=== PATIENT | female | born 1955 | race Caucasian/White ===

== ENCOUNTER 2024-01-02 23:23 | Emergency (ER) | payer MEDICAID, SELFPAY ==
[2024-01-02 23:29] VITALS: BP 105/62; PULSE 100; RESP 16; TEMP 36.6; O2SAT 96; BMI 26.6
[2024-01-03 01:00] VITALS: BP 120/70; PULSE 89; RESP 16; O2SAT 100
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
[2024-01-03 01:30] VITALS: BP 150/103; PULSE 109; RESP 16; O2SAT 98
[2024-01-03 03:14] VITALS: BP 145/69; PULSE 101; RESP 16; O2SAT 97
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
== END 2024-01-03 03:52 | disposition home or self-care (01) ==
PROVIDERS: Emergency Provider Emergency Medicine
DX: S20.219A Contusion of unspecified front wall of thorax, initial encounter (principal); V89.2XXA Person injured in unspecified motor-vehicle accident, traffic, initial encounter
CPT/HCPCS: 70450; 70486; 71260; 72125; 74177; 99284; Q9967

== ENCOUNTER → 2024-01-14 15:57 | Outpatient (BNVA) | payer MEDICAID, SELFPAY | PROVIDERS: Visit Provider Family Medicine Adult Medicine | DX: R91.8 Other nonspecific abnormal finding of lung field (principal); E04.2 Nontoxic multinodular goiter | CPT/HCPCS: 80053; 84439; 84443; 85025 ==

== ENCOUNTER 2024-01-26 07:45 | Outpatient (CLI) | payer MEDICAID, SELFPAY ==
--- NOTE | 2024-01-26 | PETR_ITS ---
PROCEDURE INFORMATION: Exam: PET/CT Skull Base to Mid-thigh Exam date and time: 01/26/2024 8:54 AM Age: 68 years old Clinical indication: Abnormal findings; Multiple pulmonary nodules/masses. Findings suspicious for malignancy. ; Additional info: Abnormal lung findings LABS AND CLINICAL REPORTS: Glucose: 126 mg/dl Treatment strategy for malignancy (PET staging): Initial Staging (PI) TECHNIQUE: Imaging protocol: Following at least four-hour fasting and following the injection of radiopharmaceutical, low dose CT images were obtained. Then, PET images were obtained. Attenuation corrected images were constructed using the CT scan. Fused images of PET and CT were reviewed. The standardized uptake values (SUV) reported below are maximum values within a region of interest, expressed in gm/ml. Exam includes orbital meatal line to mid-thigh. Radiopharmaceutical: 11.39 mCi F-18 FDG (Fluorodeoxyglucose), IV. Time of imaging post radiopharmaceutical administration: 55 minutes Injection site: Left antecubital COMPARISON: 1. CT facial bones wo con* [id number] 01/03/2024 1:[address] chest abdpel w/*[id number] 01/03/2024 1:56 AM FINDINGS: Brain: Visualized brain has normal physiologic uptake. Teeth: FDG avid (SUV max 7.5) left maxillary molar periapical lucency with adjacent maxillary sinus mucosal thickening versus mucous retention cyst. Pharynx: No abnormal uptake. Larynx: No abnormal uptake. Thyroid: Multinodular thyroid gland with index 2 cm nodule showing FDG uptake with SUV max of 5.2. Lower level FDG uptake at the right thyroid gland. Lungs, pleura and trachea: Spiculated right middle lobe nodule measuring 2.5 x 1.8 cm on axial image 243 of series 202 shows tiny calcification and FDG uptake with SUV max of 7.8. 1.5 x 1.1 cm subpleural left lower lobe nodule on axial image 236 of series 2 shows SUV max of 5.4. Linear atelectasis versus scarring adjacent to both nodules. Mild dependent atelectasis. Left lower lobe calcified granuloma. Heart: Normal physiologic uptake. Mediastinal space: No abnormal uptake. Diaphragm: Small hiatal hernia. Liver: No abnormal uptake. Gallbladder and biliary ducts: No abnormal uptake. Prior cholecystectomy. Pancreas: No abnormal uptake. Spleen: No abnormal uptake. Adrenal glands: No abnormal uptake. Kidneys and ureters: Normal physiologic uptake. Couple small right renal calcifications without hydronephrosis. Stomach and bowel: No abnormal uptake. Vasculature: No abnormal uptake. Heavy systemic atherosclerotic calcification without aortic aneurysm. Lymph nodes: Subcentimeter left level 2B cervical lymph node measures 5 mm in the short axis on axial image 316 of series 202 and shows SUV max of 5.6. Subcentimeter precarinal lymph node (6 mm short axis) shows SUV max of 4.0 on axial image 262 of series 202. Subcentimeter right hilar lymph node (6 mm short axis) shows SUV max of 3.5 on axial image 255 of series 202. Calcified left hilar lymph nodes in keeping with sequela of old granulomatous disease. Skeleton: Focal FDG uptake at subacute healing anterolateral and lateral left 2nd rib fractures as well as anterolateral left 3rd rib fracture. Degenerative change along the spine and sacroiliac joints. Low-level FDG uptake adjacent to the greater trochanters likely represents gluteal tendinopathy. Soft tissues: No abnormal uptake in the visualized head, neck, chest, abdomen, pelvis, and extremities. PET/PET skull to thigh INIT [id number] IMPRESSION: 1. Spiculated FDG avid 2.5 cm right middle lobe nodule and FDG avid 1.5 cm left lower lobe nodule suspicious for malignancy. 2. Subcentimeter ngup-yx-axbkczrndi FDG avid precarinal and right hilar lymph nodes concerning for metastatic disease given above findings but are nonspecific and could also be reactive. 3. Subcentimeter FDG avid left level 2B cervical lymph node is also nonspecific, could be metastatic or reactive. 4. Multinodular thyroid gland with moderately FDG avid 2 cm left thyroid nodule. Recommend nonemergent thyroid ultrasound. 5. Subacute healing left 2nd and 3rd rib fractures. 6. Suggested left maxillary odontogenic sinusitis.
== END 2024-01-26 07:46 | disposition home or self-care (01) ==
LOC: RAD 07:45
PROVIDERS: Visit Provider Family Medicine Adult Medicine
DX: E04.2 Nontoxic multinodular goiter (principal)
CPT/HCPCS: 78815; A9552

== ENCOUNTER 2024-02-08 14:48 | Outpatient (CLI) | payer MEDICAID, SELFPAY ==
--- NOTE | 2024-02-08 15:15 | US_ITS ---
WS: [id number] ULTRASOUND THYROID TECHNIQUE: Ultrasound of the thyroid. CLINICAL INFORMATION: thyroid nodules COMPARISON: None. FINDINGS: Thyroid: Right and left thyroid lobes are normal in size and echotexture. 2 nodules on the RIGHT and 1 on the LEFT. Right thyroid lobe: 5.3 cm x 2.6 cm x 2.0 cm Lobulated solid RIGHT thyroid nodule measuring 2.3 x 2.1 cm. Associated vascularity. Additional smaller solid RIGHT inferior thyroid nodule measuring 1.5 x 1.2 cm Left thyroid lobe: 4.1 cm x 2.4 cm x 2.1 cm. Well-circumscribed homogeneous solid LEFT thyroid nodule measuring 2.2 x 1.6 cm. This is FDG avid on the prior PET/CT. Isthmus: 0.3 mm. Cervical lymphadenopathy: None. US/US thyroid [id number] IMPRESSION: FDG-avid LEFT thyroid nodule measuring 2.2 x 1.6 cm. Recommend further evaluati on with FNA. TIRADS Category 4: Moderately suspicious (total points = 4) FNA if e1.5 cm Solid lobulated RIGHT thyroid nodule measuring 2.3 x 2.1 cm. Recommend further evaluation with FNA. TIRADS Category 4: Moderately suspicious (total points = 4) FNA if e1.5 cm Small RIGHT inferior thyroid nodule measuring 1.5 x 1.2 cm. Recommend 12-month follow-up. TIRADS Category 4: Moderately suspicious (total points = 4) FNA if e1.5 cm Follow if e1 cm (at 1, 2, 3, and 5 years)
== END 2024-02-08 14:49 | disposition home or self-care (01) ==
LOC: RAD 14:49
PROVIDERS: Visit Provider Family Medicine Adult Medicine
DX: E04.2 Nontoxic multinodular goiter (principal)
CPT/HCPCS: 76536

== ENCOUNTER 2024-02-09 08:49 | Oncology outpatient (recurring) (ONCR) | payer MEDICAID, SELFPAY | END 2024-02-25 09:19 | disposition home or self-care (01) | PROVIDERS: Visit Provider Internal Medicine Medical Oncology | DX: R91.8 Other nonspecific abnormal finding of lung field (principal); Z53.9 Procedure and treatment not carried out, unspecified reason | CPT/HCPCS: 99205 ==

== ENCOUNTER 2024-07-05 16:56 | Emergency (ER) | payer MEDICAID, SELFPAY ==
[2024-07-05 17:05] VITALS: BP 95/60; PULSE 83; RESP 17; TEMP 36.9; O2SAT 99; BMI 26.6
[2024-07-05 18:16] LABS: Basophils % 0.4 %; Eosinophils # 0.2 10^3/uL (0.0-0.8); Eosinophils % 1.9 %; Hematocrit 44.7 % (36-47); Lymphocytes # 2.5 10^3/uL (0.8-4.8); Lymphocytes % 30.3 %; Mean Corpuscular HGB Conc 31.8 g/dL (30-55); Mean Corpuscular Volume 94.3 fl (85-98); Monocytes # 0.8 10^3/uL (0.2-0.9); Monocytes % 9.1 %; Neutrophils # 4.86 10^3/uL (1.8-7.7); Neutrophils % 58.1 %; Nucleated Red Blood Cells % 0 %; Platelet Count 198 10^3/cmm (157-399); Red Blood Count 4.74 10^6/uL (3.85-5.65); Red Cell Distribution Width 13.3 % (12.1-15.1); White Blood Count 8.37 10^3/uL (3.29-11.43)
[2024-07-05 18:29] LABS: Bilirubin Urine Negative (Negative); Blood Urine 2+ (Negative); Glucose Urine UA Negative (Normal); Ketones Urine Negative (Negative); Leukocyte Esterase Urine Negative (Negative); Nitrate Urine Negative (Negative); Protein Urine Negative (Negative); Specific Gravity, Urine 1.022 (1.005-1.030); Urine Appearance Clear (CLEAR); Urine Color Yellow (Yellow); pH Urine 6.5 (5-7)
[2024-07-05 18:33] LABS: INR 0.89 (0.8-1.2)
[2024-07-05 18:34] LABS: Add Urine Microscopic? YES; Bacteria Urine None Seen /hpf; RBC Urine 21-50 /hpf (0-2); Squamous Epithelial Cell Urine 0-5 /hpf (0-5); WBC Urine 0-5 /hpf (0-5)
[2024-07-05 18:37] LABS: Alanine Aminotransferase 8 U/L (0-33); Alkaline Phosphatase 91 U/L (35-105); Anion Gap 9.5 (5-19); Aspartate Amino Transferase 12 U/L (0-32); Blood Urea Nitrogen 19 mg/dL (8-23); Calcium 9.4 mg/dL (8.5-10.5); Carbon Dioxide 31 mmol/L (22-29); Chloride 105 mmol/L (98-107); Creatinine Clr Calc Pharmacy 74.4723; Globulin 2.8 g/dL (1.3-4.6); Glomerular Filtration Rate 71.3 mL/min (90-130); Glucose 98 mg/dL (65-115); Osmolality Calculated 294 mOsm/kg (285-295); Potassium 4.5 mmol/L (3.5-5.1); Sodium 141 mmol/L (136-145); Total Bilirubin 0.2 mg/dL (0.15-1.2); Total Protein 6.8 g/dL (6.6-8.7)
[2024-07-05 18:38] VITALS: BP 116/61; PULSE 82; O2SAT 97
--- NOTE | 2024-07-05 18:39 | CTR_ITS ---
PROCEDURE INFORMATION: Exam: CT Abdomen And Pelvis With Contrast Exam date and time: 07/05/2024 7:10 PM Age: 69 years old Clinical indication: Abdominal pain; Generalized; Prior surgery; Surgery date: 6+ months; Surgery type: Lithotripsy; Additional info: Right flank pain history of stones TECHNIQUE: Imaging protocol: Computed tomography of the abdomen and pelvis with contrast. Radiation optimization: All CT scans at this facility use at least one of these dose optimization techniques: automated exposure control; mA and/or kV adjustment per patient size (includes targeted exams where dose is matched to clinical indication); or iterative reconstruction. Contrast material: OMNIPAQUE 350; Contrast volume: 100 ml; Contrast route: INTRAVENOUS (IV); COMPARISON: 1. PT PET skull to thigh INIT [id number] 01/26/2024 8:[address] chest abdpel w/*[id number] 01/03/2024 1:56 AM RADIATION DOSE METRICS: Total DLP (mGy-cm): 636.63 FINDINGS: Lungs: Stable sub 6 mm nodules in the lung bases. Liver: The liver is enlarged, measuring 20 cm craniocaudal. No suspicious mass. Gallbladder and biliary ducts: Status post cholecystectomy. Pancreas: Normal. No ductal dilation. Spleen: Normal. No splenomegaly. Adrenal glands: Normal. No mass. Kidneys and ureters: Similar benign-appearing renal cysts. Stable right renal calcifications, including likely nonobstructing calculi and cortical calcifications, measuring up to 4 mm. No left nephrolithiasis. No hydronephrosis bilaterally. Areas of cortical scarring in the left kidney again seen. Stomach and bowel: The stomach is moderately distended with debris. Appendix: No evidence of appendicitis. Intraperitoneal space: Unremarkable. No free air. No significant fluid collection. Vasculature: Diffuse aortoiliac calcifications. No aortic aneurysm. Lymph nodes: Unremarkable. No enlarged lymph nodes. Urinary bladder: Unremarkable as visualized. Reproductive: Unremarkable as visualized. Bones/joints: Unremarkable. No acute fracture. Soft tissues: Unremarkable. CT/CT abdomen pelvis w con* [id number] IMPRESSION: 1. Stable nonobstructing right nephrolithiasis. No evidence of obstructive uropathy. 2. Ancillary findings as above are similar to prior. COMMENTS: Consistent with the [employer]'s Incidental Findings Committee white paper (J Am Kathryn Radiol 2018): Any incidental renal lesion less than 1 cm or classified as too small to characterize, or any incidental cystic renal lesion characterized as simple-appearing, is likely benign. No follow-up imaging is recommended for these lesions per consensus recommendations based on imaging criteria.
[2024-07-05 18:45] LABS: Add Urine Culture? Yes
--- NOTE | 2024-07-05 19:04 | W.ED.ABDPA2 ---
HPI - Abdominal Pain General: Chief Complaint: Abdominal Pain Stated Complaint: blood in urine Time Seen by Provider: 07/05/24 17:52 History of Present Illness: Patient presents to the ER from urgent care with complaints of blood in her urine. She is also having some right-sided flank pain. Has been having this since midnight last night. She does have a history of kidney stones. She denies any nausea vomiting fever chills. Related Data Home Medications Medication Instructions Recorded Confirmed acetaminophen 325 mg capsule 325 mg PO QID PRN 02/09/24 02/09/24 aspirin 325 mg tablet 325 mg PO Q6H 02/09/24 02/09/24 Allergies Allergy/AdvReac Type Severity Reaction Status Date / Time No Known Drug Allergies Allergy Unknown Verified 07/05/24 17:08 Review of Systems General: Reports: 10 or more systems reviewed and unremarkable except in HPI and below PFSH ED PFSH: Medical History Hyperlipidemia Nicotine dependence History of seizures Healthcare maintenance Last Pap 2012, last mammogram 2011, PFT 2016 High cholesterol Renal calculus, right Multiple thyroid nodules Multiple lung nodules on CT GERD (gastroesophageal reflux disease) Surgical History History of lung biopsy (2011) Right lung biopsy, complicated by pneumothorax Status post ORIF of fracture of ankle (2018) Right ankle Family History Father Diabetes Hypertension Heart attack Mother Diabetes Heart disease Sister Colon cancer Brother Lung cancer Sister Lung cancer Social History Smoking and tobacco/nicotine status: current every day tobacco/nicotine user cigarettes Packs smoked per day: 1 Years cigarettes smoked: 49 Alcohol intake: current Alcohol intake frequency: holidays/special occasions only Alcohol type: beer, wine and hard liquor Substance/Drug Use: current Substance/Drug use frequency: daily Physical Exam Const: COMMON NORMALS: no acute distress, average body habitus, patient oriented x3, no limitations, healthy appearing, alert and well nourished HENMT: COMMON NORMALS: normocephalic, atraumatic, hearing grossly normal bilaterally, external ears normal, Normal external nose present and moist oral mucous membranes HEAD & SCALP: normocephalic and atraumatic NOSE: Normal external nose present EXTERNAL EAR: Yes external ears normal Neck/C-Spine: COMMON NORMALS: no JVD Chest: COMMONS NORMALS: normal inspection of the chest and normal palpation of entire chest wall Resp: COMMON NORMALS: normal respiratory effort, No retractions, No use of accessory muscles and clear to auscultation bilaterally AUSCULTATION: clear to auscultation bilaterally Cardio: COMMON NORMALS: no JVD, regular rate, regular rhythm, S1 normal heart sound present, S2 normal heart sound present, No gallops present (Cardio), No clicks present (Cardio), No murmurs present (Cardio) and No rub (Cardio) RATE: regular rate RHYTHM: regular rhythm HEART SOUNDS: S1 normal heart sound present and S2 normal heart sound present GI: COMMON NORMALS: Normal to inspection, nondistended, normoactive bowel sounds present, Soft to palpation, non-tender, No hepatosplenomegaly present and no masses PALPATION: Yes Soft to palpation and Yes No hepatosplenomegaly present Neuro: COMMON NORMALS: patient oriented x3 SENSORIUM/ORIENTATION: Yes alert Course Vital Signs: Vital signs: Vital Signs Temperature 98.4 F 07/05/24 17:05 Pulse Rate 80 07/05/24 20:15 Respiratory Rate 16 07/05/24 20:15 Blood Pressure 130/77 07/05/24 20:15 Pulse Oximetry 93 07/05/24 20:15 Oxygen Delivery Me thod Room Air 07/05/24 18:38 MDM - Abdominal Pain Medical Decision Making CT scan showed patient has a stable nonobstructing right 4 mm kidney stone. These results was discussed with the patient. Patient be discharged home. Medical Records I reviewed the patient's medical records. Lab Data I reviewed the patient's lab results. 07/05/24 18:03 07/05/24 18:03 Labs/Radiology: Radiology Impressions Abdomen/Pelvis CT 07/05/24 18:39 IMPRESSION: 1. Stable nonobstructing right nephrolithiasis. No evidence of obstructive uropathy. 2. Ancillary findings as above are similar to prior. COMMENTS: Consistent with the [employer]'s Incidental Findings Committee white paper (J Am Kathryn Radiol 2018): Any incidental renal lesion less than 1 cm or classified as too small to characterize, or any incidental cystic renal lesion characterized as simple-appearing, is likely benign. No follow-up imaging is recommended for these lesions per consensus recommendations based on imaging criteria. Laboratory Results WBC 8.37 10^3/uL (3.29-11.43) 07/05/24 18:03 RBC 4.74 10^6/uL (3.85-5.65) 07/05/24 18:03 Hgb 14.20 g/dL (11.27-16.99) 07/05/24 18:03 Hct 44.7 % (36-47) 07/05/24 18:03 MCV 94.3 fl (85-98) 07/05/24 18: MCH 30.0 pg (27-33) 07/05/24 18: MCHC 31.8 g/dL (30-55) 07/05/24 18:03 RDW 13.3 % (12.1-15.1) 07/05/24 18:03 Plt Count 198 10^3/cmm (157-399) 07/05/24 18:03 MPV 11.0 fL (7.4-10.4) H 07/05/24 18:03 Neut % (Auto) 58.1 % 07/05/24 18:03 Lymph % (Auto) 30.3 % 07/05/24 18:03 [place] % (Auto) 9.1 % 07/05/24 18:03 Eos % (Auto) 1.9 % 07/05/24 18:03 Baso % (Auto) 0.4 % 07/05/24 18: Neut # (Auto) 4.86 10^3/uL (1.8-7.7) 07/05/24 18:03 Lymph # (Auto) 2.5 10^3/uL (0.8-4.8) 07/05/24 18:03 [place] # (Auto) 0.8 10^3/uL (0.2-0.9) 07/05/24 18:03 Eos # (Auto) 0.2 10^3/uL (0.0-0.8) 07/05/24 18:03 Baso # (Auto) 0.0 10^3/uL (0.0-0.1) 07/05/24 18:03 Nucleated RBC % (auto) 0 % 07/05/24 18:03 Nucleated RBCs # 0.0 /100WBC 07/05/24 18:03 PT 12.60 SECONDS (12.1-14.9) 07/05/24 18:03 INR 0.89 (0.8-1.2) 07/05/24 18:03 Sodium 141 mmol/L (136-145) 07/05/24 18:03 Potassium 4.5 mmol/L (3.5-5.1) 07/05/24 18:03 Chloride 105 mmol/L (98-107) 07/05/24 18:03 Carbon Dioxide 31 mmol/L (22-29) H 07/05/24 18:03 Anion Gap 9.5 (5-19) 07/05/24 18: BUN 19 mg/dL (8-23) 07/05/24 18:03 Creatinine 0.8 mg/dL (0.5-0.9) 07/05/24 18:03 GFR Calculation 71.3 mL/min (90-130) L 07/05/24 18:03 Glucose 98 mg/dL (65-115) 07/05/24 18:03 Calculated Osmolality 294 mOsm/kg (285-295) 07/05/24 18:03 Calcium 9.4 mg/dL (8.5-10.5) 07/05/24 18:03 Total Bilirubin 0.2 mg/dL (0.15-1.2) 07/05/24 18:03 AST 12 U/L (0-32) 07/05/24 18:03 ALT 8 U/L (0-33) 07/05/24 18: Alkaline Phosphatase 91 U/L (35-105) 07/05/24 18:03 Total Protein 6.8 g/dL (6.6-8.7) 07/05/24 18: Albumin 4.0 g/dL (3.5-5.2) 07/05/24 18: Globulin 2.8 g/dL (1.3-4.6) 07/05/24 18:03 Urine Color Yellow (Yellow) 07/05/24 18:19 Urine Appearance Clear (CLEAR) 07/05/24 18:19 Urine pH 6.5 (5-7) 07/05/24 18:19 Ur Specific [place] 1.022 (1.005-1.030) 07/05/24 18:19 Urine Protein Negative (Negative) 07/05/24 18:19 Urine Glucose (UA) Negative (Normal) 07/05/24 18:19 Urine Ketones Negative (Negative) 07/05/24 18:19 Urine Blood 2+ (Negative) A 07/05/24 18:19 Urine Nitrate Negative (Negative) 07/05/24 18:19 Urine Bilirubin Negative (Negative) 07/05/24 18:19 Urine Urobilinogen 1.0 mg/dL (Negative) 07/05/24 18:19 Ur Leukocyte Esterase Negative (Negative) 07/05/24 18:19 Urine RBC 21-50 /hpf (0-2) H 07/05/24 18:19 Urine WBC 0-5 /hpf (0-5) 07/05/24 18:19 Ur Squamous Epith Cells 0-5 /hpf (0-5) 07/05/24 18:19 Amorphous Sediment Not Reportable 07/05/24 18:19 Urine Bacteria None seen /hpf (NONE) 07/05/24 18:19 Hyaline Casts 0.40 /lpf 07/05/24 18:19 All radiology interpretation(s) finalized by discharge Discharge Plan Discharge Patient Disposition: Home Clinical Impression: Calculus of kidney Condition: Stable Prescriptions: No Action aspirin 325 mg tablet 325 mg PO Q6H acetaminophen 325 mg capsule 325 mg PO QID PRN Discharge Orders: Discharge ED (Routine); Ordered 07/05/24 Ordered By: Antony Araujo Referrals: Cortes Cano MD [Primary Care Provider] - 1 week Patient Instructions: Kidney Stones Activity Restrictions/Additional Instructions: Thank you for choosing [facility] for your healthcare needs today. Please realize that you were seen in the emergency department and that we are providing you with an emergency medical screening exam and this may not be a complete and all exclusive of all testing and/or medical workup we may need to determine your element or severity of your illness. It is very important that you follow-up as instructed with your primary care provider or specialist for the additional evaluation and to discuss your medical treatment plan. You may return to the emergency department should you have concerns or if your condition changes or worsens in any way. Coding Level of Care Code ED Corporate Development Associate for Kyree Le
[2024-07-05] MEDS: iohexol 350 mg/mL 500 mL Btl (per mL) IV (19:13)
[2024-07-05 20:15] VITALS: BP 130/77; PULSE 80; RESP 16; O2SAT 93
[2024-07-05 20:50] VITALS: BP 133/76; PULSE 84; RESP 16; O2SAT 100
== END 2024-07-05 21:00 | disposition home or self-care (01) ==
PROVIDERS: Emergency Medicine; Emergency Provider Emergency Medicine; PCP Family Medicine Adult Medicine
DX: N20.0 Calculus of kidney (principal); Z79.82 Long term (current) use of aspirin; F17.210 Nicotine dependence, cigarettes, uncomplicated; E78.5 Hyperlipidemia, unspecified
CPT/HCPCS: 36415; 74177; 80053; 81001; 85025; 85610; 87086; 99285

== ENCOUNTER 2025-01-26 11:29 | Emergency (ER) | payer MEDICAID, SELFPAY ==
--- OUTSIDE RECORDS SUMMARY | 2024-05-10 08:40 | XMS_ITS ---
Author Organization [facility] Address [address] [place] [address] Care Team Providers Care Bilingual Call Center Representative Name Role Phone Jerome MURRIETA, Cortes Primary Care Provider Unavailab Josue Newman Unavailable [phone] Easton Strickland Unavailable Unavailable Encounters Encounter Location Date Provider Diagnosis Formerly [facility] [address] [place] [address], [place] [id number] 05/10/2024 Josue Gay Plan Of Treatment No Information Progress Notes * DAVONTE SAMSN EDOB:1955 (69 yo F)Acc No.[id number]:05/10/2024 Progress Notes Patient: NICOLE RIGGINS Provider: Mariana Gay MD :1955 A ge:69 Y S ex:Female Date:05/10/2024 Address:[address] [place], [place] [id number] Pcp:Cortes Cano MD Care Plan Details* * Electronic signature of Ellie Gay MD on 01/26/2025 at 11:37 AM CDT Sign off status: Pending * Provider: Mariana Gay MD Date: 07/10/2023 Generated for Logani ng/Fahoang/eTransmitting on: 0 01/26/2025 11:37 AM CDT
[2025-01-26 11:32] VITALS: BP 98/65; PULSE 71; RESP 16; TEMP 36.8; O2SAT 97; BMI 27.7
--- OUTSIDE RECORDS SUMMARY | 2025-01-26 11:37 | XMS_ITS | Patient Health Record ---
Author Organization [facility] Address [address] [place] [address] Care Team Providers Care School Age Lead Teacher Name Role Phone Cortes Cano MD Primary Care Provider Unavailab Josue Newman Unavailable [phone] Easton Strickland Unavailable Unavailable Allergies No Known Allergies Reason For Referral Reason multiple lung nodule - 03/14: 1 wk per Deidra Scheduled 03/22/24 @ 2:30 PM Diagnosis 1 Other nonspecific ab normal finding of lung field (R91.8) Referring Provider First Name Easton Referring Provider Last Name Marco A Referring Provider Speciality Medical On cology Referred Organization [facility] Referred Provider Josue Gay Referred Address [address] [facility] [address],[place], [place],[address],[place] Referred Provider Specialty Pulmonary Di pennyes General Notes Cassy Bedolla 024 02:21:41 PM >02/23: need to request imaging from PET 01/26/[address] 01/03/24 ; need records from lung biopsy in 2011, Cassy Bedolla 02/25/2024 04:38:04 PM >Shaheen from [facility] radiology stated he would powershare images over., Cassy Bedolla 02/25/2024 04:42:05 PM >Left Message with [facility] oncology asking for lung biopsy records from 2011Graeme Marie 03/01/2024 09:30:13 AM >Called radiology. They received [employer] imaging and will be putting in exceptions. Faxed request to Oncology as we still have not received biopsy records.Graeme Marie 2024 10:24:02 AM >[facility] made it very clear they do not have records of lung biopsy and have no way to request.Graeme Marie 2024 10:28:46 AM >03/14: Gave PET to provider to review, GraemeEmilye 2024 10:33:49 AM >03/14: 1 wk per Graeme Gay Cassy 2024 03:36:21 PM >Scheduled 03/22/24 @ 2:30 PM Referral Priority Stat Social History Tobacco Use: Social History Observation Description Date Details (start date - stop date) Current Smoker NA - NA Social History Tobacco Use: Social Info Question Answer Notes Tobacco Control (Standard) Tobacco use: Current smoker How many cigarettes a day do you smoke? - Problems Problem Type SNOMED Code ICD Code Onset Dates Problem Status W/U Status Risk Notes Problem Tobacco user ([id number]) Nicotine dependence, cigarettes, uncomplicated (F17.210) Active confirmed Vital Signs Heart Rate 70 /min 03/22/2024 Temperature 97 degrees Fahrenheit 03/22/2024 Respiratory Rate 20 /min 03/22/2024 Height-cm 167.64 cm 03/22/2024 Oximetry 99 % 03/22/2024 Blood pressure diastolic 89 mm Hg 03/22/2024 Weight-kg 36.33 kg 03/22/2024 Height 66 in 03/22/2024 Blood pressure systolic 156 mm Hg 03/22/2024 Weight 80.1 lbs 03/22/2024 BMI 12.93 kg/m2 03/22/2024 Encounters Encounter Location Date Provider Diagnosis [facility] [address] [place] [address] [place] [address] 03/22/2024 Josuepeggy Gordonmatthias Multiple pulmonary nodules R91.8 ; Nicotine dependence, cigarettes, uncomplicated F17.210 and Encounter for smoking cessation counseling Z71.6 Assessments Encounter Date Diagnosis (ICD Code) Assessment Notes Treatment Notes Treatment Clinical Notes Section Notes 03/22/2024 Multiple pulmonary nodules (ICD-10 - R91.8) I have discussed with patient treatment options of robotic navigational bronchoscopy vs CT monitoring. In the presence of her [id number] she initially opted to proceed with robotic navigational bronchoscopy. However later on she decided that she was not going to do anything about it. She was tired of all this workup and did not want any further follow-up. 03/22/2024 Nicotine dependence, cigarettes, uncomplicated (ICD-10 - F17.210) -Patient smoked a rqxi-vur-eik for 47 years. She has cut down to half a [id number]-qet since December 2023. Smoking cessation emphasized. 03/22/2024 Encounter for smoking cessation counseling (ICD-10 - Z71.6) 03/22/2024 Other I, Khadijah Tomlin, am scribing for, and in the presence of Dr. Josue Gay. I, Dr. Josue Gay, personally performed the services described in this documentation, as scribed by Khadijah Tomlin in my presence, and it is both accurate and complete. Plan Of Treatment No Information Insurance Providers Payer Name Payer Address Payer Phone Subscriber Number Group Number Insured Name Patient Relationship to Insured Coverage Start Date Coverage End Date [place] Medicaid [address] [place] [address] [id number] NICOLE SAMS Self - patient is the insured Medical (General) History Medical History History ICD Code pneumonia Surgical History Surgery Date(Month/Year) Right lung Biopsy- Rissa2018 ?
--- NOTE | 2025-01-26 11:43 | XR_ITS ---
WS: [id number] XR foot RT min 3V* [id number] REASON FOR EXAM: Trauma FINDINGS: No acute fracture identified. Joint spaces in the forefoot, midfoot, and hindfoot are intact and relatively well preserved. No radiopaque soft tissue foreign body. XR/XR foot RT min 3V* [id number] IMPRESSION: No acute bone or joint abnormality.
--- NOTE | 2025-01-26 11:43 | XR_ITS ---
WS: [id number] XR knee RT 3V* [id number] REASON FOR EXAM: Trauma FINDINGS: Lateral tibial plateau deformity consistent with old healed tibial plateau fracture. No acute fracture is identified. Patella intact. Moderately severe osteoarthritis with multiple loose bodies. XR/XR knee RT 3V* [id number] IMPRESSION: No acute abnormality.
--- NOTE | 2025-01-26 12:04 | W.ED.EXTPRO ---
HPI - Extremity Problem General: Chief complaint: Extremity Problem,Nontraumatic Stated complaint: ochoa burns paiute sent, R foot pain, swelling in R knee Time Seen by Provider: 01/26/25 11:43 History of Present Illness: 69-year-old female presents emergency room complaining of right foot and knee pain for the last few days that she stepped on a nail 6 days ago and now has some swelling on the right foot between the 4th and 5th metatarsal heads where she stepped on the nail no drainage mild redness. No fever. Associated symptoms: Deny chest pain, fever(s) or rash Related Data Home Medications ?Medication ?Instructions ?Recorded ?Confirmed amoxicillin 875 mg-potassium 1 tab PO BID 01/26/25 01/26/25 clavulanate 125 mg tablet ibuprofen 200 mg tablet (Advil) 600 mg PO Q6H PRN Fever Or Pain 01/26/25 01/26/25 sulfamethoxazole 800 1 tab PO BID 01/26/25 01/26/25 mg-trimethoprim 160 mg tablet Previous Rx's ?Medication ?Instructions ?Recorded amoxicillin 875 mg-potassium 1 tab PO BID #14 tabs 01/26/25 clavulanate 125 mg tablet Allergies Allergy/AdvReac Type Severity Reaction Status Date / Time No Known Drug Allergies Allergy Unknown Verified 01/26/25 11:35 Review of Systems Const: Denies: fever(s) or chills Card: Denies: chest pain Resp: Denies: dyspnea GI: Denies: abdominal pain : Denies: dysuria, urinary frequency or urinary urgency Musc: Denies: neck pain or back pain Skin/Breast: Denies: rash PFSH ED PFSH: Medical History Hyperlipidemia Nicotine dependence History of seizures Healthcare maintenance Last Pap 2012, last mammogram 2011, PFT 2017 High cholesterol Renal calculus, right Multiple thyroid nodules Multiple lung nodules on CT GERD (gastroesophageal reflux disease) Surgical History History of lung biopsy (2011) Right lung biopsy, complicated by pneumothorax Status post ORIF of fracture of ankle (2018) Right ankle Family History Father Diabetes Hypertension Heart attack Mother Diabetes Heart disease Sister Colon cancer Brother Lung cancer Sister Lung cancer Social History Smoking and tobacco/nicotine status: current every day tobacco/nicotine user cigarettes Packs smoked per day: 1 Years cigarettes smoked: 49 Alcohol intake: current Alcohol intake frequency: holidays/special occasions only Alcohol type: beer, wine and hard liquor Substance/Drug Use: current Substance/Drug use frequency: daily Physical Exam Const: COMMON NORMALS: no acute distress GENERAL APPEARANCE: cooperative and comfortable ORIENTATION/CONSCIOUSNESS: Yes awake, Yes oriented to person, Yes oriented to place and Yes oriented to time HENMT: COMMON NORMALS: normocephalic, atraumatic and hearing grossly normal bilaterally HEAD & SCALP: normocephalic and atraumatic Resp: COMMON NORMALS: normal respiratory effort, No retractions, No use of accessory muscles and clear to auscultation bilaterally AUSCULTATION: clear to auscultation bilaterally Cardio: COMMON NORMALS: regular rate, regular rhythm and No murmurs present (Cardio) RATE: regular rate RHYTHM: regular rhythm GI: COMMON NORMALS: Soft to palpation and No hepatosplenomegaly present AUSCULTATION: Yes normoactive bowel sounds PALPATION: Yes Soft to palpation, No Tenderness to palpation present (GI), No Guarding due to palpation present (GI) and Yes No hepatosplenomegaly present Extremity: COMMON NORMALS: normal to inspection, capillary refill normal, no clubbing, cyanosis or edema, no calf tenderness and no pedal edema OTHER: Puncture wound mild localized swelling around the forefoot first second digits no purulent drainage. No popliteal lymphadenopathy. Neuro: SENSORIUM/ORIENTATION: Yes oriented to person, Yes oriented to place and Yes oriented to time Skin: COMMON NORMALS: no rashes or lesions noted GENERAL SKIN EXAM: no rashes or lesions noted Course Vital Signs: Vital signs: Vital Signs Temperature 98.2 F 01/26/25 11:32 Pulse Rate 69 01/26/25 12:44 Respiratory Rate 16 01/26/25 11:32 Blood Pressure 121/69 01/26/25 12:44 Pulse Oximetry 99 01/26/25 12:44 Oxygen Delivery Me thod Room Air 01/26/25 12:24 MDM - Extremity (Nontraumatic) Medical Decision Making Mild swelling present tender to touch no purulent drainage. X-rays unremarkable. White count not elevated. CRP very minimally elevated will start on oral antibiotics follow-up as an outpatient Medical Records I reviewed the patient's medical records. Lab Data I reviewed the patient's lab results. 01/26/25 12:00 01/26/25 12:00 Radiology Impressions Foot X-Ray 01/26/25 11:43 IMPRESSION: No acute bone or joint abnormality. Knee X-Ray 01/26/25 11:43 IMPRESSION: No acute abnormality. Laboratory Results WBC 7.15 10^3/uL (3.29-11.43) 01/26/25 12:00 RBC 4.53 10^6/uL (3.85-5.65) 01/26/25 12:00 Hgb 13.90 g/dL (11.27-16.99) 01/26/25 12:00 Hct 43.0 % (36-47) 01/26/25 12:00 MCV 94.9 fl (85-98) 01/26/25 12:00 MCH 30.7 pg (27-33) 01/26/25 12:00 MCHC 32.3 g/dL (30-55) 01/26/25 12:00 RDW 13.1 % (12.1-15.1) 01/26/25 12:00 Plt Count 210 10^3/cmm (157-399) 01/26/25 12:00 MPV 10.7 fL (7.4-10.4) H 01/26/25 12:00 Neut % (Auto) 55.6 % 01/26/25 12:00 Lymph % (Auto) 33.7 % 01/26/25 12:00 [place] % (Auto) 8.5 % 01/26/25 12:00 Eos % (Auto) 1.7 % 01/26/25 12:00 Baso % (Auto) 0.4 % 01/26/25 12:00 Neut # (Auto) 3.97 10^3/uL (1.8-7.7) 01/26/25 12:00 Lymph # (Auto) 2.4 10^3/uL (0.8-4.8) 01/26/25 12:00 [place] # (Auto) 0.6 10^3/uL (0.2-0.9) 01/26/25 12:00 Eos # (Auto) 0.1 10^3/uL (0.0-0.8) 01/26/25 12:00 Baso # (Auto) 0.0 10^3/uL (0.0-0.1) 01/26/25 12:00 Nucleated RBC % (auto) 0 % 01/26/25 12:00 Nucleated RBCs # 0.0 /100WBC 01/26/25 12:00 Sodium 139 mmol/L (136-145) 01/26/25 12:00 Potassium 4.5 mmol/L (3.5-5.1) 01/26/25 12:00 Chloride 104 mmol/L (98-107) 01/26/25 12:00 Carbon Dioxide 27 mmol/L (22-29) 01/26/25 12:00 Anion Gap 12.5 (5-19) 01/26/25 12:00 BUN 14 mg/dL (8-23) 01/26/25 12:00 Creatinine 0.9 mg/dL (0.5-0.9) 01/26/25 12:00 GFR Calculation 62.3 mL/min (90-130) L 01/26/25 12:00 Glucose 109 mg/dL (65-115) 01/26/25 12:00 Calculated Osmolality 289 mOsm/kg (285-295) 01/26/25 12:00 Calcium 9.0 mg/dL (8.5-10.5) 01/26/25 12:00 Total Bilirubin 0.2 mg/dL (0.15-1.2) 01/26/25 12:00 AST 13 U/L (0-32) 01/26/25 12:00 ALT 9 U/L (0-33) 01/26/25 12:00 Alkaline Phosphatase 94 U/L (35-105) 01/26/25 12:00 C-Reactive Protein 5.6 mg/L (0.0-4.9) H 01/26/25 12:00 Total Protein 7.1 g/dL (6.6-8.7) 01/26/25 12:00 Albumin 3.9 g/dL (3.5-5.2) 01/26/25 12:00 Globulin 3.2 g/dL (1.3-4.6) 01/26/25 12:00 All radiology interpretation(s) finalized by discharge Discharge Plan Discharge Patient Disposition: Home Clinical Impression: Cellulitis Condition: Stable Prescriptions: New amoxicillin-pot clavulanate 875-125 mg tablet 1 tab PO BID Qty: 14 0RF No Action sulfamethoxazole-trimethoprim 800-160 mg tablet 1 tab PO BID ibuprofen [Advil] 200 mg Tablet 600 mg PO Q6H PRN (Reason: Fever Or Pain) amoxicillin-pot clavulanate 875-125 mg tablet 1 tab PO BID Discharge Orders: Discharge ED (Routine); Ordered 01/26/25 Ordered By: Doug Morley Referrals: Rory Vargas MD [Primary Care Provider, Family Practice] Discharge Diet: Usual diet Discharge Activity: Resume usual activity Patient Instructions: Opioid Safety, Pain Management, Patient Portal & Dipti Instructions Activity Restrictions/Additional Instructions: [facility]. It is very important that you follow up as instructed or that you return to the Emergency Department should you have concerns or if your condition changes or worsens in any way. You are seen in the emergency room for complaints of pain in your foot x-rays of your foot and knee show chronic changes but no acute abnormalities. Your white count was normal. Other inflammatory markers are relatively minimally elevated. There is some swelling around the area where you had reported stepping on the screw. Will cover you for a cellulitis with oral antibiotics 1 pill twice a day for 7 days if you develop fever or worsening symptoms recheck with your primary care doctor Print Language: Portuguese Coding Level of Care Code ED Financial Examiner for Kyree Le
[2025-01-26 12:06] LABS: Hematocrit 43.0 % (36-47); Hemoglobin 13.90 g/dL (11.27-16.99); Mean Corpuscular HGB Conc 32.3 g/dL (30-55); Mean Corpuscular Hemoglobin 30.7 pg (27-33); Mean Corpuscular Volume 94.9 fl (85-98); Nucleated Red Blood Cells % 0 %; Platelet Count 210 10^3/cmm (157-399); Red Blood Count 4.53 10^6/uL (3.85-5.65); White Blood Count 7.15 10^3/uL (3.29-11.43)
[2025-01-26] MEDS: tetanus-dipt-pertussis 0.5 mL SDV IM (12:22)
[2025-01-26 12:24] VITALS: BP 147/86; PULSE 67; O2SAT 96
[2025-01-26 12:27] LABS: Alanine Aminotransferase 9 U/L (0-33); Albumin Level 3.9 g/dL (3.5-5.2); Alkaline Phosphatase 94 U/L (35-105); Anion Gap 12.5 (5-19); Aspartate Amino Transferase 13 U/L (0-32); Blood Urea Nitrogen 14 mg/dL (8-23); Calcium 9.0 mg/dL (8.5-10.5); Carbon Dioxide 27 mmol/L (22-29); Chloride 104 mmol/L (98-107); Creatinine Clr Calc Pharmacy 63.0768; Globulin 3.2 g/dL (1.3-4.6); Glucose 109 mg/dL (65-115); Osmolality Calculated 289 mOsm/kg (285-295); Potassium 4.5 mmol/L (3.5-5.1); Sodium 139 mmol/L (136-145); Total Protein 7.1 g/dL (6.6-8.7)
[2025-01-26 12:44] VITALS: BP 121/69; PULSE 69; O2SAT 99
== END 2025-01-26 12:45 | disposition home or self-care (01) ==
PROVIDERS: Emergency Provider Family Medicine; PCP Family Medicine
DX: L03.115 Cellulitis of right lower limb (principal); E78.5 Hyperlipidemia, unspecified
CPT/HCPCS: 36415; 73562; 73630; 80053; 85025; 86140; 90715; 99284